=== PATIENT | female | born 1935 | race Caucasian/White ===

== ENCOUNTER 2019-01-21 17:27 | Emergency (ER) | payer MEDICARE, OTHER ==
[~2019-01-21] VITALS: Ht 149.9 cm; Wt 56.7 kg
[~2019-01-21 17:27] MED LIST: ASPI81TA31 PO; Acetaminophen PO; Docusate Sodium PO; HYDR-3205 PO; MULT1TAB73 PO; NEBI5TAB8 PO; TRAM300T2 PO; VALS40TA4 PO
--- NOTE | 2019-01-21 18:19 | NUR ---
Patient discharged to home in stable conditon. Written and verbal after care instructions given. Patient verbalizes understanding of instructions.PT WALKED IN STEADY GAIT. PT ACCOMPANIED BY DAUGHTER.
== END 2019-01-21 18:10 | disposition home or self-care (01) ==
LOC: ER 17:27
DX: T16.2XXA Foreign body in left ear, initial encounter (principal); I10 Essential (primary) hypertension; Z88.1 Allergy status to other antibiotic agents; Z79.891 Long term (current) use of opiate analgesic; Z79.82 Long term (current) use of aspirin; Z79.899 Other long term (current) drug therapy; X58.XXXA Exposure to other specified factors, initial encounter; Y93.89 Activity, other specified; Y92.89 Other specified places as the place of occurrence of the external cause; Y99.8 Other external cause status
CPT/HCPCS: A4663

== ENCOUNTER 2023-09-06 20:31 | Inpatient (IN) | payer MEDICARE, OTHER ==
[~2023-09-06] VITALS: Ht 162.6 cm; Wt 57.7 kg
[2023-09-06 20:30] VITALS: BP 140/68; TEMP 98.1; O2SAT 95
[~2023-09-06 20:31] MED LIST changes: -HYDR-3205 PO; +HYDR-4277 PO; +MULT-594 PO; -MULT1TAB73 PO
[2023-09-06] MEDS ORDERED: REMEDY ESSENTIAL ZINC PASTE 113 GM TOP PRN (20:45)
[2023-09-06] MEDS ORDERED: FLUT1BLS IH (21:31)
[2023-09-06] MEDS ORDERED: FURO40TA5 PO (21:31)
[2023-09-06] MEDS ORDERED: ICOS1CAP PO (21:31)
[2023-09-06] MEDS ORDERED: APIX5TAB PO (21:31)
[2023-09-06] MEDS ORDERED: CLON0.1T PO (21:31)
[2023-09-06] MEDS ORDERED: DICL100G31 TP (21:31)
[2023-09-06] MEDS ORDERED: TRAM100T23 PO (21:31)
[2023-09-06] MEDS ORDERED: POTA-88 PO (21:31)
[2023-09-06] MEDS ORDERED: HYDR-3980 PO (21:31)
[2023-09-06] MEDS ORDERED: DAPA10TA PO (21:31)
[2023-09-06] MEDS ORDERED: MAGN400T40 PO (21:31)
[2023-09-06] MEDS ORDERED: CYAN100085 IM (21:31)
[2023-09-06] MEDS ORDERED: ERGO2000 PO (21:31)
[2023-09-06] MEDS ORDERED: ASPI81TA31 PO (21:31)
[2023-09-06] MEDS ORDERED: NEBI10TA2 PO (21:31)
[2023-09-06] MEDS ORDERED: ROSU5TAB PO (21:31)
[2023-09-06 22:02] VITALS: O2SAT 95
[2023-09-06] MEDS ORDERED: DOSING BY PHARMACY-MD TO SPECIFY MED/ROUTE XX PRN (23:45)
[2023-09-07 04:30] VITALS: BP 136/63; TEMP 98.3; O2SAT 95
[2023-09-07 08:00] VITALS: BP 114/41
[2023-09-07] MEDS: MULTIVITAMINS,THERAPEUTIC TABLET PO SCH (09:00)
[2023-09-07] MEDS ORDERED: FUROSEMIDE 40 MG TABLET PO SCH (09:00)
[2023-09-07] MEDS ORDERED: Medication Not On Formulary EA (Icosapent Ethyl (Vascepa) 2 CAP) PO SCH (09:00)
[2023-09-07] MEDS ORDERED: Medication Not On Formulary EA (Rosuvastatin Calcium (Crestor) 5 MG) PO SCH (09:00)
[2023-09-07] MEDS: OMEGA-3 FATTY ACIDS/FISH OIL CAPSULE PO SCH ×2 (09:00→17:30)
[2023-09-07] MEDS ORDERED: ERGOCALCIFEROL PO SCH (09:00)
[2023-09-07] MEDS: FLUTICASONE/VILANTEROL 1 EACH BLST.W.DEV IH SCH (09:00)
[2023-09-07] MEDS: DAPAGLIFLOZIN PROPANEDIOL 5 MG TABLET PO SCH (09:00)
[2023-09-07] MEDS: APIXABAN 5 MG TABLET PO SCH ×2 (11:57→21:00)
[2023-09-07 16:10] VITALS: BP 117/51; TEMP 97.9; O2SAT 99
[2023-09-07 18:28] VITALS: O2SAT 98
[2023-09-07] MEDS: HYDROCODONE/APAP 5-325MG TABLET PO PRN (19:20)
[2023-09-07 20:21] VITALS: BP 131/56; TEMP 98; O2SAT 93
[2023-09-07 20:45] VITALS: O2SAT 98
[2023-09-07] MEDS ORDERED: ATORVASTATIN 10 MG TABLET PO SCH (21:00)
[2023-09-08 04:10] VITALS: BP 151/73; TEMP 98.1; O2SAT 95
[2023-09-08] MEDS: ALBUTEROL SULFATE 1.25 MG/3 ML NEBU NEB PRN ×2 (06:44→10:35)
[2023-09-08 06:49] VITALS: O2SAT 90
[2023-09-08 06:56] VITALS: O2SAT 98
[2023-09-08 07:34] VITALS: BP 122/78; O2SAT 94
[2023-09-08] MEDS: APIXABAN 5 MG TABLET PO SCH (09:00)
[2023-09-08] MEDS: MULTIVITAMINS,THERAPEUTIC TABLET PO SCH (09:00)
[2023-09-08] MEDS: OMEGA-3 FATTY ACIDS/FISH OIL CAPSULE PO SCH (09:00)
[2023-09-08] MEDS: FLUTICASONE/VILANTEROL 1 EACH BLST.W.DEV IH SCH (09:00)
[2023-09-08] MEDS: DAPAGLIFLOZIN PROPANEDIOL 5 MG TABLET PO SCH (09:00)
[2023-09-08 09:57] LABS: BASOPHILS # (AUTO) 0.1 K/UL (0.0-0.2); BASOPHILS % (AUTO) 0.3 % (0.0-2.0); HEMATOCRIT 45.2 % (31.2-41.9); HEMOGLOBIN 14.4 g/dL (10.9-14.3); LYMPHOCYTES # (AUTO) 0.5 K/uL (0.8-4.8); LYMPHOCYTES % (AUTO) 2.2 % (20.5-51.5); MEAN CORPUSCULAR HEMOGLOBIN 28.9 uug (24.7-32.8); MEAN CORPUSCULAR HGB CONC 32 g/dL (32.3-35.6); MEAN CORPUSCULAR VOLUME 90.4 fL (75.5-95.3); MONOCYTES % (AUTO) 4.4 % (0.0-11.0); NEUTROPHILS # (AUTO) 21.2 K/uL (1.8-8.9); NEUTROPHILS % (AUTO) 93.1 % (38.5-71.5); PLATELET COUNT (AUTO) 151 K/uL (179-408); RED CELL DISTRIBUTION WIDTH 15.4 % (12.3-17.7); WHITE BLOOD COUNT (AUTO) 22.8 K/uL (3.8-11.8)
[2023-09-08 10:07] LABS: DIFFERENTIAL COMMENT 1
[2023-09-08 10:18] LABS: THYROID STIMULATING HORMONE 0.137 mIU/mL (0.358-3.740)
[2023-09-08 10:21] LABS: IRON, SERUM 29 ug/dL (50-175)
[2023-09-08 10:27] LABS: ALANINE AMINOTRANSFERASE 38 U/L (14-59); ALBUMIN 2.5 g/dL (3.4-5.0); ALKALINE PHOSPHATASE 92 U/L (50-136); ASPARTATE AMINOTRANSFERASE 28 U/L (15-37); BILIRUBIN,TOTAL 1.9 mg/dL (0.2-1.0); CALCIUM 8.5 mg/dL (8.5-10.1); CARBON DIOXIDE 24 mmol/L (21-32); CHLORIDE 110 mmol/L (98-107); CHOLESTEROL 165 mg/dL (<200); CREATININE 1.2 mg/dL (0.6-1.3); GLUCOSE 103 mg/dL (74-106); HDL CHOLESTEROL 34 mg/dL (40-60); MAGNESIUM 2.9 mg/dL (1.8-2.4); NT-PRO BNP 6183 pg/mL (0-125); PHOSPHOROUS 2.9 mg/dL (2.5-4.9); POTASSIUM 4.3 mmol/L (3.5-5.1); SODIUM SERUM 145 mmol/L (136-145); TOTAL PROTEIN, SERUM 6.6 g/dL (6.4-8.2); TRIGLYCERIDES 111 MG/DL (30-150); UREA NITROGEN, BLOOD 47 mg/dL (7-18)
[2023-09-08 10:35] VITALS: O2SAT 93; O2SAT 98
[2023-09-08 10:50] VITALS: BP 123/51; TEMP 97; O2SAT 92; O2SAT 95
[2023-09-08] MEDS: HYDROCODONE/APAP 5-325MG TABLET PO PRN (13:48)
[2023-09-08] MEDS ORDERED: APIX5TAB PO (17:34)
[2023-09-08] MEDS ORDERED: ALBU1.25 IH (17:34)
[2023-09-08] MEDS ORDERED: ALBU2.5V13 NEB (17:34)
[2023-09-08] MEDS ORDERED: ATOR10TA PO (17:34)
[2023-09-08] MEDS ORDERED: APIX2.5T PO (17:34)
[2023-09-08] MEDS ORDERED: OMEG1CAP40 PO (17:34)
[2023-09-08] MEDS ORDERED: ZINC113P3 TP (17:34)
[2023-09-08] MEDS ORDERED: [UNRECOGNIZED DRUG - CODE] PO (17:34)
[2023-09-09] MEDS ORDERED: ERGOCALCIFEROL 50,000 UNIT CAPSULE PO SCH (09:00)
[2023-09-14] MEDS ORDERED: APIXABAN 2.5 MG TABLET PO SCH (09:00)
== END 2023-09-08 15:55 | disposition short-term general hospital (02) | DRG 177 ==
LOC: MEDSURG3 20:45 → UNDOADMIN 20:45
PROVIDERS: ADMIT Physical Medicine & Rehabilitation Pain Medicine; ATTEND Physical Medicine & Rehabilitation Pain Medicine
DX: U07.1 COVID-19 (principal); E43 Unspecified severe protein-calorie malnutrition; I21.4 Non-ST elevation (NSTEMI) myocardial infarction; I50.33 Acute on chronic diastolic (congestive) heart failure; J96.21 Acute and chronic respiratory failure with hypoxia; J12.82 Pneumonia due to coronavirus disease 2019; N17.9 Acute kidney failure, unspecified; I82.412 Acute embolism and thrombosis of left femoral vein; J98.11 Atelectasis; D68.59 Other primary thrombophilia; I27.20 Pulmonary hypertension, unspecified; R62.7 Adult failure to thrive; I11.0 Hypertensive heart disease with heart failure; I70.0 Atherosclerosis of aorta; Z79.01 Long term (current) use of anticoagulants; I25.10 Atherosclerotic heart disease of native coronary artery without angina pectoris; D69.6 Thrombocytopenia, unspecified; Z88.1 Allergy status to other antibiotic agents; E78.5 Hyperlipidemia, unspecified; Z87.891 Personal history of nicotine dependence; Z90.2 Acquired absence of lung [part of]; I86.8 Varicose veins of other specified sites; R73.9 Hyperglycemia, unspecified
CPT/HCPCS: 36415; 71045; 83550; 83735; 84100; 84443; 84484; 85025; 86140; 94640; 94760; 97535-GO-CO; A4606; A4663; A6213